=== PATIENT | female | born 2000 | race Caucasian/White ===

== ENCOUNTER 2021-04-13 17:48 | Emergency (ER) | payer OTHER ==
[~2021-04-13] VITALS: Ht 165.1 cm; Wt 84.0 kg
[2021-04-13] MEDS: BACITRACIN ZINC OINT UDPKT TOP NR (19:04)
[2021-04-13 19:10] VITALS: BP 127/86
== END 2021-04-13 19:11 | disposition home or self-care (01) ==
LOC: ER 17:48
DX: S01.511D Laceration without foreign body of lip, subsequent encounter (principal); Z48.02 Encounter for removal of sutures; X58.XXXD Exposure to other specified factors, subsequent encounter
CPT/HCPCS: 99282